=== PATIENT | female | born 1940 ===

== ENCOUNTER 2017-01-16 09:20 | Day surgery (SDC) | payer OTHER ==
[~2017-01-16 09:20] MED LIST: Acetaminophen TAB* 325 MG PO PRN; Buffered Lidocaine 0.9% SYRIN* 5 ML/SYR SYRINGE INTRADERM ONE; Cyclopentolate 1% OPTH.SOL* 2 ML BTL ONE; Flurbiprofen 0.03% OPTH.SOL* 2.5 ML BTL ONE; Lidocaine 2% EPI 1:200000 MPF* 20 ML VIAL ONE; Lidocaine 2% MPF* 2 ML VIAL ONE; Neomycin/Polymy/Dex OPTH.SUSP* MAXITROL 0.1% 5 ML ONE; Phenylephrine 2.5% OPTH.SOL* 2 ML BTL ONE; Povidone Iodine 5% OPTH* 30 ML BTL ONE; Proparacaine 0.5% OPHTH.SOL* 15 ML BTL ONE; acetaZOLAMIDE TAB* 250 MG ONE
[2017-01-16] MEDS ORDERED: Midazolam* 1 MG/ML 2 ML VIAL (2 MG) ONE (11:55)
[2017-01-16 12:28] VITALS: BP 116/60
--- NOTE | 2017-01-16 15:32 | OP ---
DATE OF OPERATION: 01/16/17 [facility] DATE OF : 44 SURGEON: Joe Fletcher MD. PREOPERATIVE DIAGNOSIS: Cataract, left eye. POSTOPERATIVE DIAGNOSIS: Cataract, left eye. OPERATIVE PROCEDURE: Phacoemulsification, left eye with IOL. DESCRIPTION OF PROCEDURE: The patient was brought to the operating room after being given 1/2% Alcaine with epinephrine drops in the preoperative area. The eye was prepped and draped in the usual sterile fashion. Sterile drape and eyelid speculum were placed. Again, topical 1/2% Alcaine with epinephrine was given. A paracentesis incision was made at the 3 o'clock position with the No.75 blade. Clear cornea incision 2.2 x 2.2-mm was created at the 6 o'clock position starting at the anterior limbus using the 2.2-mm keratome. The anterior chamber was irrigated with 0.4 mL of 1% non-preservative intracameral lidocaine and filled with DisCoVisc. A capsulorrhexis was completed using the cystotome and the Utrata forceps. Hydrodissection was performed with balanced salt solution. The lens nucleus was removed with the Phacoemulsification handpiece without incident. Cortex was removed with the irrigation-aspiration handpiece. The capsular bag was re-inflated using DisCoVisc and an [id number] implant was inserted with the shooter. The irrigation-aspiration handpiece was used to remove all residual DisCoVisc. The eye was refilled with balanced salt solution and the wound checked and found to be watertight. Topical Maxitrol drops were given. [id number]/[facility] #: [id number] [facility] HEALTHLaurie
== END 2017-01-16 12:37 | disposition home or self-care (01) ==
LOC: OREAST 09:20
PROVIDERS: ATTEND Specialist
DX: H25.812 Combined forms of age-related cataract, left eye (principal); I10 Essential (primary) hypertension; M19.90 Unspecified osteoarthritis, unspecified site
CPT/HCPCS: A9270-GY; J2250; V2632

== ENCOUNTER 2017-01-21 13:48 | Emergency (ER) | payer OTHER ==
[2017-01-21 15:14] LABS: Hematocrit 36 % (35-47); Hemoglobin 11.9 g/dl (12.0-16.0); Mean Corpuscular HGB Conc 33 g/dl (31-36); Mean Corpuscular Hemoglobin 30 pg (27-31); Mean Corpuscular Volume 90 fL (80-97); Mean Platelet Volume 8 um3 (7.4-10.4); Red Blood Count 4.05 10^6/ul (4.0-5.4); Red Cell Distribution Width 14 % (10.5-15); White Blood Count 6.1 10^3/ul (3.5-10.8)
--- NOTE | 2017-01-21 15:28 | RAD ---
Indication: Fever. 2 views of the chest including dual energy PA views demonstrate no mediastinal shift. Heart is of normal size and configuration. Lung beavers show no evidence of pleural fluid, pneumonia or pneumothorax. IMPRESSION: No active cardiopulmonary disease is noted.
[2017-01-21 15:29] LABS: Albumin 3.5 g/dL (3.2-5.2); BUN/Creatinine Ratio 22.1 (8-20); Calcium 8.6 mg/dL (8.6-10.3); EGFR African American 108.8 (>60); EGFR Non-African American 84.6 (>60); Globulin 3.1 g/dL (2-4); Potassium 3.9 mmol/L (3.5-5.0); Total Bilirubin 0.3 mg/dL (0.2-1.0); Total Protein 6.6 g/dL (6.4-8.9)
--- NOTE | 2017-01-21 17:44 | RAD ---
INDICATION: ] Right upper quadrant pain COMPARISON: CT April 20, 2011 TECHNIQUE: Longitudinal and transverse scans of the right upper quadrant were obtained. Doppler interrogation of the hepatic and portal venous system was performed. FINDINGS: Liver: The liver is normal in size and echogenicity. There are no focal masses. The liver measures 13.6 cm in cephalocaudal dimension. Vessels: There is normal hepatic and portal venous flow. Bile ducts: There is no evidence of intrahepatic or extrahepatic ductal dilatation. The common duct measures 0.5 cm. Gallbladder: The sonographic appearance of the gallbladder is normal. There is no evidence of cholelithiasis, thickening of the gallbladder wall, or pericholecystic fluid. Pancreas: The visualized pancreas appears normal Right kidney: The right kidney is normal in size and echogenicity. There is a probable small (3 mm) calculus in lower pole of the right kidney. There is no evidence of hydronephrosis. The right kidney measures 9.9 x 4.4 x 5.3 cm. IVC and aorta: The aorta and superior vena cava appear normal. Fluid: There is no ascites. Other: None. IMPRESSION: PROBABLE NONOBSTRUCTIVE RIGHT RENAL CALCULUS, OTHERWISE NEGATIVE.
[2017-01-21 18:54] LABS: Urine Bacteria Absent (Absent); Urine Bilirubin Negative (Negative); Urine Glucose Negative (Negative); Urine Nitrite Negative (Negative)
[2017-01-21 19:21] VITALS: BP 119/63
--- NOTE | 2017-01-21 21:46 | ED ---
Reggie Childress Salem, scribed for Luan Kuhn MD on 01/21/17 at 1626 . HPI Febrile Illness - HPI Summary HPI Summary: Patient is a 76 y/o F who presents to the ED with a fever for the past 5 days. She reports myalgia, neck stiffness, abd pain, nausea (intermittently), acid reflux, and loss of appetite (but states she has been eating). Pt has been taking Tylenol with little to no alleviation to fever. She states that she had a pelvic US 2 weeks ago that revealed a thickening of the uterine wall and she is scheduled for a biopsy in 3 days. She also states that 5 days ago she had cataract surgery on her left eye with Dr. Fletcher and followed up with him the next day. Per pt, there were no complications. (Pt is scheduled for right eye cataract surgery in 2 days.) reports they were touring [facility] two weeks ago (there for 3 weeks). - History of Current Complaint Chief Complaint: EDGeneral Time Seen by Provider: 01/21/17 15:59 Hx Obtained From: Patient, Family/Spring [employer] Helper Onset/Duration: Started Days Ago, Atraumatic, Still Present Timing: Constant, Lasting Days Initial Severity: Moderate Current Severity: Moderate Pain Intensity: 0 Pain Scale Used: 0-10 Numeric Aggravating Factors: Nothing Alleviating Factors: Nothing Associated Signs and Symptoms: Nausea, Stiff Neck, Other: - Fever. - Allergy/Home Medications Allergies/Adverse Reactions: Allergies Allergy/AdvReac Type Severity Reaction Status Date / Time No Known Allergies Allergy Verified 01/16/17 10:30 PMH/Surg Hx/FS Hx/Imm Hx Cardiovascular History: Reports: Hx Hypertension Musculoskeletal History: Reports: Hx Arthritis, Hx Osteoporosis Denies: Hx Rheumatoid Arthritis Sensory History: Reports: Hx Contacts or Glasses - GLASSES Denies: Hx Hearing Aid Opthamlomology History: Reports: Hx Contacts or Glasses - GLASSES Psychiatric History: Reports: Hx Anxiety - 20 YEARS AGO-NO PROBLEMS NOW - Cancer History Hx Chemotherapy: No Hx Radiation Therapy: No - Surgical History Surgery Procedure, Year, and Place: ENDOSCOPY Hx Anesthesia Reactions: No Infectious Disease History: No Infectious Disease History: Denies: Traveled Outside the [place] in Last 30 Days - Family History Known Family History: Positive: Hypertension - Mother. - Social History Alcohol Use: None Hx Substance Use: No Substance Use Type: Reports: None Hx Tobacco Use: No Smoking Status (MU): Never Smoked Tobacco Review of Systems Positive: Fever Positive: Other - Neck stiffness. Positive: Abdominal Pain, Nausea, Other - Loss of appetite. Acid reflux. Positive: Myalgia All Other Systems Reviewed And Are Negative: Yes Physical Exam Triage Information Reviewed: Yes Vital Signs On Initial Exam: Initial Vitals Temp Pulse Resp BP Pulse Ox 99 F 100 17 133/61 98 01/21/17 13:59 01/21/17 13:59 01/21/17 13:59 01/21/17 13:59 01/21/17 13:59 Vital Signs Reviewed: Yes Appearance: Positive: Well-Appearing, No Pain Distress Skin: Positive: Warm, Skin Color Reflects Adequate Perfusion, Dry Head/Face: Positive: Normal Head/Face Inspection Eyes: Positive: Normal Neck: Positive: Supple, Nontender Respiratory/Lung Sounds: Positive: Clear to Auscultation, Breath Sounds Present Cardiovascular: Positive: RRR Abdomen Description: Positive: Soft, Other: - Mild RUQ tenderness. Bowel Sounds: Positive: Present Musculoskeletal: Positive: Normal Neurological: Positive: Normal Psychiatric: Positive: Normal, Affect/Mood Appropriate - Richard Coma Scale Coma Scale Total: 15 Diagnostics - Vital Signs Vital Signs Temp Pulse Resp BP Pulse Ox 01/21/17 16:20 119/54 01/21/17 16:00 93 97 01/21/17 15:22 91 96 01/21/17 15:15 100.2 F 86 16 126/59 96 01/21/17 13:59 99 F 100 17 133/61 98 - Laboratory Lab Results: Lab Results 01/21/17 01/21/17 01/21/17 Range/Units 15:02 15:02 15:02 WBC 6.1 (3.5-10.8) 10^3/ul RBC 4.05 (4.0-5.4) 10^6/ul Hgb 11.9 L (12.0-16.0) g/dl Hct 36 (35-47) % MCV 90 (80-97) fL MCH 30 (27-31) pg MCHC 33 (31-36) g/dl RDW 14 (10.5-15) % Plt Count 168 (150-450) 10^3/ul MPV 8 (7.4-10.4) um3 Neut % (Auto) 77.7 (38-83) % Lymph % (Auto) 17.0 L (25-47) % Pender % (Auto) 4.5 (1-9) % Eos % (Auto) 0.6 (0-6) % Baso % (Auto) 0.2 (0-2) % Absolute Neuts (auto) 4.7 (1.5-7.7) 10^3/ul Absolute Lymphs (auto) 1.0 (1.0-4.8) 10^3/ul Absolute Monos (auto) 0.3 (0-0.8) 10^3/ul Absolute Eos (auto) 0 (0-0.6) 10^3/ul Absolute Basos (auto) 0 (0-0.2) 10^3/ul Absolute Nucleated RBC 0 10^3/ul Nucleated RBC % 0 Sodium 136 (133-145) mmol/L Potassium 3.9 (3.5-5.0) mmol/L Chloride 104 (101-111) mmol/L Carbon Dioxide 27 (22-32) mmol/L Anion Gap 5 (2-11) mmol/L BUN 15 (6-24) mg/dL Creatinine 0.68 (0.51-0.95) mg/dL Est GFR ( Amer) 108.8 (>60) Est GFR (Non-Af Amer) 84.6 (>60) BUN/Creatinine Ratio 22.1 H (8-20) Glucose 172 H (70-100) mg/dL Lactic Acid 1.3 (0.5-2.0) mmol/L Calcium 8.6 (8.6-10.3) mg/dL Total Bilirubin 0.30 (0.2-1.0) mg/dL AST 107 H (13-39) U/L ALT 122 H (7-52) U/L Alkaline Phosphatase 168 H (34-104) U/L Total Protein 6.6 (6.4-8.9) g/dL Albumin 3.5 (3.2-5.2) g/dL Globulin 3.1 (2-4) g/dL Albumin/Globulin Ratio 1.1 (1-3) Influenza A (Rapid) (Negative) Influenza B (Rapid) (Negative) 01/21/17 Range/Units 15:59 WBC (3.5-10.8) 10^3/ul RBC (4.0-5.4) 10^6/ul Hgb (12.0-16.0) g/dl Hct (35-47) % MCV (80-97) fL MCH (27-31) pg MCHC (31-36) g/dl RDW (10.5-15) % Plt Count (150-450) 10^3/ul MPV (7.4-10.4) um3 Neut % (Auto) (38-83) % Lymph % (Auto) (25-47) % Pender % (Auto) (1-9) % Eos % (Auto) (0-6) % Baso % (Auto) (0-2) % Absolute Neuts (auto) (1.5-7.7) 10^3/ul Absolute Lymphs (auto) (1.0-4.8) 10^3/ul Absolute Monos (auto) (0-0.8) 10^3/ul Absolute Eos (auto) (0-0.6) 10^3/ul Absolute Basos (auto) (0-0.2) 10^3/ul Absolute Nucleated RBC 10^3/ul Nucleated RBC % Sodium (133-145) mmol/L Potassium (3.5-5.0) mmol/L Chloride (101-111) mmol/L Carbon Dioxide (22-32) mmol/L Anion Gap (2-11) mmol/L BUN (6-24) mg/dL Creatinine (0.51-0.95) mg/dL Est GFR ( Amer) (>60) Est GFR (Non-Af Amer) (>60) BUN/Creatinine Ratio (8-20) Glucose (70-100) mg/dL Lactic Acid (0.5-2.0) mmol/L Calcium (8.6-10.3) mg/dL Total Bilirubin (0.2-1.0) mg/dL AST (13-39) U/L ALT (7-52) U/L Alkaline Phosphatase (34-104) U/L Total Protein (6.4-8.9) g/dL Albumin (3.2-5.2) g/dL Globulin (2-4) g/dL Albumin/Globulin Ratio (1-3) Influenza A (Rapid) Negative (Negative) Influenza B (Rapid) Negative (Negative) Result Diagrams: 01/21/17 15:02 01/21/17 15:02 Lab Statement: Any lab studies that have been ordered have been reviewed, and results considered in the medical decision making process. - Radiology CXR Radiology Interpretation Completed By: Radiologist - IMPRESSION: No active cardiopulmonary disease is noted. - Ultrasound No standard instances Ultrasound Interpretation Completed By: Radiologist - US GALLBLADDER: PROBABLE NONOBSTRUCTIVE RIGHT RENAL CALCULUS, OTHERWISE NEGATIVE. Course/Dx - Course Course Of Treatment: Ms. Ramsey has had a persistent fever foir 5 days. She feels fine after taking tylenol but then when it wears off, her fever goes up, her head hurts and she gets achy all over. She had cataracter surgery last week on her left eye but it does not hurt, her vision is fine and her eye movements are good. Her W/U here was unremarkable. She is still pending a lyme PCR. I recommended close F/U. Her liver enzymes were up a bit and an U/S was negative so I reccommended she stop the tylenol and switch to ibuprofen and F/U. Assessment/Plan: Dr. Kinney (gastro) @ [id number]. Discussed pt's case. - Diagnoses Provider Diagnoses: Fever Discharge - Discharge Plan Condition: Stable Disposition: HOME Patient Education Materials: Fever in Adults (ED) Referrals: Barbi Kulkarni MD [Primary Care Provider] - Additional Instructions: Please follow up with Dr. Kulkarni in 1-2 days. Stop taking Tylenol and use Ibuprofen for fever. The documentation as recorded by the Reggie cantrell Salem accurately reflects the service I personally performed and the decisions made by me, Luan Kuhn MD.
[2017-01-24 00:26] LABS: B garinii/B afzelii PCR Negative (Negative); B mayonii PCR Negative (Negative)
== END 2017-01-21 19:26 | disposition home or self-care (01) ==
LOC: ED 13:48
DX: R50.9 Fever, unspecified (principal); R11.0 Nausea; M43.6 Torticollis
CPT/HCPCS: 36415; 71020; 76705; 80053; 81003; 81015; 83605; 85025; 87040; 87086; 87476; 87502; 87798; 99283

== ENCOUNTER 2017-02-13 08:57 | Day surgery (SDC) | payer OTHER ==
[~2017-02-13 08:57] MED LIST changes: -Cyclopentolate 1% OPTH.SOL* 2 ML BTL ONE; -Flurbiprofen 0.03% OPTH.SOL* 2.5 ML BTL ONE; -Lidocaine 2% EPI 1:200000 MPF* 20 ML VIAL ONE; -Lidocaine 2% MPF* 2 ML VIAL ONE; -Neomycin/Polymy/Dex OPTH.SUSP* MAXITROL 0.1% 5 ML ONE; -Phenylephrine 2.5% OPTH.SOL* 2 ML BTL ONE; -Povidone Iodine 5% OPTH* 30 ML BTL ONE; -Proparacaine 0.5% OPHTH.SOL* 15 ML BTL ONE; -acetaZOLAMIDE TAB* 250 MG ONE
[2017-02-13] MEDS ORDERED: fentaNYL* 50 MCG/ML 2 ML VIAL (100 MCG VIAL) ONE (10:07)
[2017-02-13] MEDS ORDERED: Midazolam* 1 MG/ML 5 ML VIAL (5 MG) ONE (10:07)
[2017-02-13 11:47] VITALS: BP 118/53
[2017-02-13] MEDS ORDERED: Neomycin/Polymy/Dex OPTH.SUSP* MAXITROL 0.1% 5 ML ONE (13:28)
[2017-02-13] MEDS ORDERED: acetaZOLAMIDE TAB* 250 MG ONE (13:28)
[2017-02-13] MEDS ORDERED: Lidocaine 2% EPI 1:200000 MPF* 20 ML VIAL ONE (13:28)
[2017-02-13] MEDS ORDERED: Buffered Lidocaine 0.9% SYRIN* 5 ML/SYR SYRINGE ONE (13:28)
[2017-02-13] MEDS ORDERED: Proparacaine 0.5% OPHTH.SOL* 15 ML BTL ONE (13:28)
[2017-02-13] MEDS ORDERED: Phenylephrine 2.5% OPTH.SOL* 2 ML BTL ONE (13:28)
[2017-02-13] MEDS ORDERED: Flurbiprofen 0.03% OPTH.SOL* 2.5 ML BTL ONE (13:28)
[2017-02-13] MEDS ORDERED: Lidocaine 1% MPF* 2 ML VIAL ONE (13:28)
[2017-02-13] MEDS ORDERED: Cyclopentolate 1% OPTH.SOL* 2 ML BTL ONE (13:28)
[2017-02-13] MEDS ORDERED: Povidone Iodine 5% OPTH* 30 ML BTL ONE (13:28)
--- NOTE | 2017-02-13 16:01 | OP ---
DATE OF OPERATION: 02/13/2017 - [facility] DATE OF : 1940. SURGEON: Joe Fletcher M.D. PREOPERATIVE DIAGNOSIS: Cataract right eye. POSTOPERATIVE DIAGNOSIS: Cataract right eye. OPERATIVE PROCEDURE: Phacoemulsification right eye with IOL. DESCRIPTION OF PROCEDURE: The patient was brought to the operating room after being given 1/2% Alcaine with epinephrine drops in the preoperative area. The eye was prepped and draped in the usual sterile fashion. Sterile drape and eyelid speculum were placed. Again, topical 1/2% Alcaine with epinephrine was given. A paracentesis incision was made at the 9 o'clock position with the No.75 blade. Clear cornea incision 2.2 x 2.2-mm was created at the 12 o'clock position starting at the anterior limbus using the 2.2-mm keratome. The anterior chamber was irrigated with 0.4 mL of 1% non-preservative intracameral lidocaine and filled with DisCoVisc. A capsulorrhexis was completed using the cystotome and the Utrata forceps. Hydrodissection was performed with balanced salt solution. The lens nucleus was removed with the Phacoemulsification handpiece without incident. Cortex was removed with the irrigation-aspiration handpiece. The capsular bag was re-inflated using DisCoVisc and an [id number] [id number] implant was inserted with the shooter. The irrigation-aspiration handpiece was used to remove all residual DisCoVisc. The eye was refilled with balanced salt solution and the wound checked and found to be watertight. Topical Maxitrol drops were given. [id number]/[facility] #: [id number] [facility] MEDICAL CENTERLaurie
== END 2017-02-13 11:52 | disposition home or self-care (01) ==
LOC: OREAST 08:57
PROVIDERS: ATTEND Specialist
DX: H25.811 Combined forms of age-related cataract, right eye (principal); I10 Essential (primary) hypertension; E78.00 Pure hypercholesterolemia, unspecified
CPT/HCPCS: A9270-GY; J2250; J3010; V2632

== ENCOUNTER 2018-10-10 19:28 | Emergency (ER) | payer OTHER ==
[2018-10-10 19:45] VITALS: BP 146/73
--- NOTE | 2018-10-10 20:23 | UC ---
Skin Complaint HPI - HPI Summary HPI Summary: 78 y/o female presents to the urgent care c/o itchy rash in rash in her abdomen , lower back and below her breast for the past 5 days. Pt thinks she rash appeared after using a new soap. Rash is worse at night time. She has been w/ URI and sore throat since 09/21/2018 which still mild. Pt denies fever, SOB, difficulty breathing, abdominal pain, N/V/D. Pt denies eating new foods, body lotions , change in medications. - History of Current Complaint Chief Complaint: UCSkin Time Seen by Provider: 10/10/18 20:22 Stated Complaint: RASH Hx Obtained From: Patient Hx Last Menstrual Period: post menopause ?: No Onset/Duration: Gradual Onset, Lasting Days - 5 days, Still Present, Worse Since - yesterday Skin Exposure Onset/Duration: Days Ago - 5 days Timing: Constant Onset Severity: Mild Current Severity: Mild Pain Intensity: 0 Pain Scale Used: 0-10 Numeric Location: Diffuse - on abdomen, lower back and under B/L breast Character: Pruritus, Redness - discrete Aggravating Factor(s): Touch Alleviating Factor(s): Cold Associated Signs & Symptoms: Positive: Rash - itchy rash. Negative: Difficulty Breathing, Fever, Chills, Drainage, Tenderness Related History: Possible Reaction to: Environmental Exposure - Allergy/Home Medications Allergies/Adverse Reactions: Allergies Allergy/AdvReac Type Severity Reaction Status Date / Time No Known Allergies Allergy Verified 09/21/18 15:56 PMH/Surg Hx/FS Hx/Imm Hx Previously Healthy: Yes Cardiovascular History: Hypertension - Surgical History Surgical History: Yes Surgery Procedure, Year, and Place: ENDOSCOPY. left eye cataract extraction with IOL - Family History Known Family History: Positive: Hypertension - Mother. - Social History Occupation: Retired Lives: With Family Alcohol Use: None Substance Use Type: None Smoking Status (MU): Never Smoked Tobacco Review of Systems All Other Systems Reviewed And Are Negative: Yes Constitutional: Positive: Negative Skin: Positive: Rash - Abdomen, under B/L breast, and lower back w/ itchiness Eyes: Positive: Negative ENT: Positive: Negative Respiratory: Positive: Negative Cardiovascular: Positive: Negative Gastrointestinal: Positive: Negative Genitourinary: Positive: Negative Motor: Positive: Negative Neurovascular: Positive: Negative Musculoskeletal: Positive: Negative Neurological: Positive: Negative Psychological: Positive: Negative Is Patient Immunocompromised?: No Physical Exam - Summary Physical Exam Summary: Vital Signs Reviewed: Yes General: well appearing, well nourished in no acute female apparent pain distress, sitting comfortably on examining table Eye Exam: Normal Eyes: Positive: Conjunctiva Clear - PERRLA< EOMI, fundi grossly normal ENT: Positive: Normal ENT inspection, Hearing grossly normal, Pharynx normal, TMs normal Neck: Positive: Supple, Nontender, No Lymphadenopathy Respiratory: Positive: Chest non-tender, Lungs clear, Normal breath sounds, No respiratory distress Cardiovascular: Positive: RRR, No Murmur, Pulses Normal, Brisk Capillary Refill Abdomen Description: Positive: Nontender, No Organomegaly, Soft. Negative: CVA Tenderness (R), CVA Tenderness (L) Bowel Sounds: Positive: Present Musculoskeletal: Positive: Strength Intact, ROM Intact, No Edema Neurological: Positive: Alert, Muscle Tone Normal Psychological Exam: Normal Skin: Positive: abdomen, lower back and under B/L breast w/ a discrete maculopapular eruption w/ signs of excoriation and dryness non tender to palpation, no discharge, swelling or warm to touch observed Triage Information Reviewed: Yes Vital Signs: Initial Vital Signs Temp 97.7 F 10/10/18 19:34 Pulse 69 10/10/18 19:34 Resp 16 10/10/18 19:34 BP 146/73 10/10/18 19:34 Pulse Ox 97 10/10/18 19:34 Course/Dx - Course Course Of Treatment: 78 y/o female presents to the urgent care c/o itchy rash in rash in her abdomen, lower back and below her breast for the past 5 days. Pt thinks she rash appeared after using a new soap. Rash is worse at night time. She has been w/ URI and sore throat since 09/21/2018 which still mild. Pt denies fever, SOB, difficulty breathing, abdominal pain, N/V/D. Pt denies eating new foods, body lotions , change in medications. Hx obtained. Pt w/ possible contact dermatitis w/ pruritus on examination. abdomen, lower back and under B/L breast w/ a discrete maculopapular eruption w/ signs of excoriation and dryness non tender to palpation, no discharge, swelling or warm to touch observed on examination. Pt w/ possible contact dermatitis Pt Given Prednsione taper dose at the clinic by the nurse. 1 tab of Benadryl PO givne to Pt to take tonight at home to alelviate pruritus. Pt tolerated well medication given by nurse. Pt RX Prednisone PO taper dose, Caladryl topical lotion, Benadryl PO and Hydrocortisone topical cream to alleviate symptoms.Strongly advised not to use the soap. D/C instructions explained. Pt understood and agreed w/ plan of care and left the clinic ambulating and hemodynamically stable. - Differential Diagnoses - Skin Complaint Differential Diagnoses: Abscess, Contact Dermatitis, Local Allergic Reaction, Urticaria - Diagnoses Provider Diagnosis: Contact dermatitis, Pruritus, Uncontrolled hypertension Discharge - Sign-Out/Discharge Documenting (check all that apply): Patient Departure - d/C home All imaging exams completed and their final reports reviewed: No Studies - Discharge Plan Condition: Stable Disposition: HOME Prescriptions: diPHENhydraMINE PO* [Benadryl PO 25 MG TAB*] 25 mg PO TID PRN #21 tab PRN Reason: pruritus Hydrocortisone 1% CREAM* 1 applic TOPICAL BID #1 applic predniSONE TAB* [Deltasone 20 MG TAB*] 20 mg PO DAILY #8 tab Patient Education Materials: Contact Dermatitis (ED) Referrals: Barbi Kulkarni MD [Primary Care Provider] - 3 Days Additional Instructions: 1-Please Start taking Prednisone PO taper dose starting tomorrow. first loading dose given today at the clinic. 2- Continue taking Benadryl PO to alleviate itchiness. Apply topical cream as directed. Avoid exposure to the sun. 3-If symptoms do not improve or worsen please f/u with your PCP 3 days for further evaluation and treatment. 4- If symptoms worsen and you develop SOB or difficulty breathing please go immediately to the ER for further management. 5- Your BP is elevated today. please decrease salt in your diet, monitor BP and if it continues to be elevated please f/u with your PCP for further management. - Billing Disposition and Condition Condition: STABLE Disposition: Home
[2018-10-10] MEDS ORDERED: predniSONE TAB* 20 MG PO ONE (20:59)
[2018-10-10] MEDS ORDERED: diPHENhydraMINE PO* 25 MG PO ONE (21:02)
== END 2018-10-10 21:25 | disposition home or self-care (01) ==
LOC: UCEAST 19:28
DX: L25.8 Unspecified contact dermatitis due to other agents (principal); L29.9 Pruritus, unspecified; I10 Essential (primary) hypertension; J06.9 Acute upper respiratory infection, unspecified; J02.9 Acute pharyngitis, unspecified
CPT/HCPCS: 87651; 99212; A9270-GY; G0463; J7512

== ENCOUNTER 2019-08-20 14:48 | Emergency (ER) | payer OTHER ==
[2019-08-20 15:10] VITALS: BP 137/71
--- NOTE | 2019-08-20 15:10 | UC ---
Lower Extremity/Ankle HPI - HPI Summary HPI Summary: 78 yo female presents, accompanied by , with right ankle/foot injury. Around noon today she was walking down steps out of a building and missed a step - dorsiflexed her right ankle and inverted ankle. She has been walking on it since, but has some mild swelling to the top of her foot with slight pain here. Denies numbness or tingling - History of Current Complaint Stated Complaint: RT ANKLE INJURY Time Seen by Provider: 08/20/19 15:05 Hx Obtained From: Patient Hx Last Menstrual Period: post menopause Onset/Duration: Sudden Onset Severity Initially: Moderate Severity Currently: Moderate Pain Intensity: 7 Pain Scale Used: 0-10 Numeric Aggravating Factor(s): Standing, Ambulation Able to Bear Weight: No - Allergies/Home Medications Allergies/Adverse Reactions: Allergies Allergy/AdvReac Type Severity Reaction Status Date / Time No Known Allergies Allergy Verified 08/20/19 15:05 PMH/Surg Hx/FS Hx/Imm Hx Endocrine History: Dyslipidemia Cardiovascular History: Hypertension - Surgical History Surgical History: Yes Surgery Procedure, Year, and Place: ENDOSCOPY. left eye cataract extraction with IOL - Family History Known Family History: Positive: Hypertension - Mother. - Social History Lives: With Family Alcohol Use: None Substance Use Type: None Smoking Status (MU): Never Smoked Tobacco Review of Systems All Other Systems Reviewed And Are Negative: No Constitutional: Positive: Negative Skin: Positive: Negative Respiratory: Positive: Negative Cardiovascular: Positive: Negative Musculoskeletal: Positive: Other: - Right ankle injury Neurological: Positive: Negative Psychological: Positive: Negative Physical Exam - Summary Physical Exam Summary: GENERAL: NAD. WDWN. No pain distress. SKIN: No rashes, sores, lesions, or open wounds. CHEST: No accessory muscle use. Breathing comfortably and in no distress. CV: Pulses intact PT and DP. Cap refill <2seconds MSK: RIGHT ANKLE: FROM. NTTP. No edema. Strength 5/5. No edema or obvious bony deformities. Negative talar tilt. RIGHT FOOT: Mild edema and slight ttp overlying dorsal and dorsolateral foot without specific point tenderness. Moves all toes without pain. Dorsiflexion causes mild pain at site. NEURO: Alert. Sensations intact and symmetric B/L LEs PSYCH: Age appropriate behavior. Triage Information Reviewed: Yes Vital Signs: Vital Signs: Temp Pulse Resp BP Pulse Ox 98.3 F 80 16 137/71 98 08/20/19 15:07 08/20/19 15:07 08/20/19 15:07 08/20/19 15:07 08/20/19 15:07 Vital Signs Reviewed: Yes Diagnostics - Radiology Ankle XR Radiology Interpretation Completed By: Radiologist Summary of Radiographic Findings: IMPRESSION: 1. No definite fracture identified. A well-corticated ossific structure seen along the distal dorsal talus on lateral view. Correlate with point tenderness. 2. Osteopenia. Foot XR Summary of Radiographic Findings: IMPRESSION: 1. No definite fracture identified. A well-corticated ossific structure seen along the distal dorsal talus on lateral view. Correlate with point tenderness. 2. Osteopenia. Lower Extremity Course/Dx - Course Course Of Treatment: XRs as above. Could represent a fracture as this seems to correlate with area of pain, however pain is very mild and she is ambulatory without much difficulty. I recommended placing her in a CAM boot and having her RICE, but she declined CAM boot and prefers to IRMA wrap her foot. Advised to f/u with Orthopedics if symptoms do not improve within 5 days. - Differential Dx/Diagnosis Provider Diagnosis: Foot injury Discharge ED - Sign-Out/Discharge Documenting (check all that apply): Patient Departure All imaging exams completed and their final reports reviewed: Yes - Discharge Plan Condition: Stable Disposition: HOME Patient Education Materials: Foot Sprain (ED) Referrals: Barbi Kulkarni MD [Primary Care Provider] - Clifford Mendiola MD [Medical Doctor] - If Needed Additional Instructions: If you develop a fever, shortness of breath, chest pain, new or worsening symptoms - please call your PCP or go to the ED immediately. 1) Rest, Ice, and elevate your foot 2) Use the CAM boot as much as possible until you start to feel better 3) If your symptoms worsen or do not improve within 5 days - please call Orthopedics at the number below to schedule an appointment for a recheck - Billing Disposition and Condition Condition: STABLE Disposition: Home
== END 2019-08-20 15:35 | disposition home or self-care (01) ==
LOC: UCEAST 14:48
DX: S99.921A Unspecified injury of right foot, initial encounter (principal); I10 Essential (primary) hypertension; M85.871 Other specified disorders of bone density and structure, right ankle and foot; W10.9XXA Fall (on) (from) unspecified stairs and steps, initial encounter; Y93.01 Activity, walking, marching and hiking; Y92.9 Unspecified place or not applicable
CPT/HCPCS: 99212; G0463